=== PATIENT | male | born 1995 | race Caucasian/White ===

== ENCOUNTER 2018-06-27 13:15 | Emergency (ER) | payer OTHER ==
[~2018-06-27] VITALS: Ht 182.9 cm; Wt 81.6 kg
[2018-06-27 13:30] VITALS: BP 131/71
[2018-06-27] MEDS ORDERED: Lidocaine 1% MPF 10mg/ml 5ml IM ONE (13:45)
--- NOTE | 2018-06-27 14:09 | Emergency Room Report ---
History of Present Illness General Chief Complaint: Skin Rash/Abscess Source: Patient Present Illness HPI 23-year-old male patient presents ER complaining of swelling on his left hand small finger for the past month. Reports that a month ago he went through a glass window with his hand, states that he receives laceration repair and antibiotics at that time. Reports she was not consistent with taking the antibiotics, does not know name of abx. Reports has been asked dancing swelling symptoms of his finger since that time. Denies drainage or loss of range of motion. Reports he is right-hand dominant. Reports last took Tylenol last night. Denies other acute symptoms. Reports up to date on tetanus. Allergies: Coded Allergies: No Known Allergies (Unverified , 06/27/18) Patient History Past Medical History: see triage record Reviewed Nursing Documentation: PMH: Agreed; PSxH: Agreed Nursing Documentation-PMH Hx Asthma: Yes Review of Systems All Other Systems: negative except mentioned in HPI Physical Exam Vital Signs Date Time Temp Pulse Resp B/P (MAP) Pulse Ox O2 Delivery O2 Flow Rate FiO2 06/27/18 13:30 97.8 105 20 131/71 98 Room Air 97.9 Sp02 EP Interpretation: reviewed, normal General Appearance: well appearing, no apparent distress, alert, GCS 15, non- toxic Head: normocephalic, atraumatic Eyes: bilateral eye normal inspection, bilateral eye PERRL ENT: hearing grossly normal, normal pharynx, no angioedema, normal voice, uvula midline, moist mucus membranes Neck: full range of motion Respiratory: lungs clear, normal breath sounds, no rhonchi, no respiratory distress, no accessory muscle use, no wheezing, speaking full sentences Cardiovascular #1: regular rate, rhythm, no edema Cardiovascular #2: 2+ radial (R), 2+ radial (L) Musculoskeletal: back normal, digits/nails normal, gait/station normal, normal range of motion, non-tender, other - no fusiform swelling, digit not held inf lexion, no pain with flexion or extension, no TTP, NVI Neurologic: alert, oriented x3, responsive, motor strength/tone normal, sensory intact Psychiatric: mood/affect normal Skin: other - left hand small finger at PIP joint, erythematous flucutuant mass , no warmth to palpation, scabbing present, no warmth to palpation Procedures Incision and Drainage Incision and Drainage : Consent: Verbal Site: left small finger Blade Size: 11 I & D Procedure: betadine prep, sterile drapes applied, sterile dressing applied Wound Location: other - left hand small finger Wound's Depth, Shape: superficial Wound Length (cm): 1 Wound Explored: contaminated Irrigated w/ Saline (ccs): 10 Anesthesia: 1% Lidocaine Volume Anesthetic (ccs): 2 Splint Applied?: Yes Sling Applied?: No Patient Tolerated: Well Complications: None Medical Decision Making PA Attestation Dr. Coe is my supervising Physician whom patient management has been discussed with. Diagnostic Impression: Primary Impression: Finger mass, left ER Course Pt. presents to the ED c/o left finger swelling. Ddx considered but are not limited to fracture, sprain, strain, contusion, dislocation, cellulitis, abscess, cyst, edema, scar tissue. No erythema, no warmth to touch, no fever, nontoxic appearing, low suspicion for septic joint. no fusiform swelling, full range of motion, no tenderness to palpation over flexor tendon, finger is not held in flexion or extension, low suspicion for flexor tenosynovitis. Vital signs: are WNL, pt. is afebrile Ordered X-ray and pain medication. ER COURSE Provided with pain medication. An X-ray of the left hand shows soft tissue swelling at the PIP joint of the left hand, no radiopaque foreign body, no fracture per the preliminary reading I and D performed in the ER, local block using lid. Small less than 1 cm incision made ulnar side of hand at mass, small amount of blood and pus expressed, mass still visible, possible scar tissue formation. Provided with contact information for hand specialist. Follow up with hand specialist and schedule appointment. Keep wound clean and dry. Wound dressed. Bacitracin applied. Tylenol for pain symptoms. Patient instructed on RICE method: rest, ice, compression, elevation. Patient instructed on rest, ice and heat. Patient instructed to be WBAT Followup with primary care provider. Discuss referral to ortho/pain management/ PT as needed. Discuss further imaging with MRI/CT as needed. DISCHARGE: -Rx provided for Bactrim for pain symptoms. At this time pt. is stable for d/c to home. Patient is resting comfortably, in no acute distress, nontoxic appearing, talking without difficulty. Will provide printed patient care instructions, and any necessary prescriptions. Patient instructed to follow with primary care provider in 3 - 5 days and to request further follow-up as needed. Care plan and follow up instructions have been discussed with the patient prior to discharge. Take medications as directed. Patient questions asked and answered. Patient reports understanding and agreement to treatment plan. ER precautions given, patient instructed to return to ER immediately for any new or worsening of symptoms. - Please note that this Emergency Department Report was dictated using [employer] operator technology software, occasionally this can lead to erroneous entry secondary to interpretation by the dictation equipment. Other X-Ray Diagnostic Results Other X-Ray Diagnostic Results : X-Ray ordered: left hand # of Views/Limited Vs Complete: 3 View PA Xray: Interpretation reviewed, by supervising MD, and agrees with findings. Interpretation: no soft tissue swelling, no fractures, other - soft tissue swelling Impression: Other - soft tissue swelling PA Scribe Text Sylvester Dhillon PA-C Last Vital Signs Date Time Temp Pulse Resp B/P (MAP) Pulse Ox O2 Delivery O2 Flow Rate FiO2 06/27/18 13:49 97.8 06/27/18 13:30 105 20 131/71 98 Room Air Disposition: HOME, SELF-CARE Condition: Stable Scripts Trimethoprim/Sulfamethoxazole 160/800* (BACTRIM DS TABLET*) 1 Each Tablet 1 TAB ORAL TWICE A DAY for 7 Days, #14 TAB Prov: Michael Dhillon 06/27/18 Referrals: NOT CHOSEN IPA/,REFERRING (PCP) Patient Instructions: Finger Sprain, [id number] Additional Instructions: Patient instructed to follow up with primary care provider. Followup with hand specialist. Patient instructed on RICE method: rest, ice, compression, elevation. Patient instructed to WBAT. Take medications as directed. Take complete course of antibiotics. Patient questions asked and answered. ER precautions given, patient instructed to return to ER immediately for any new or worsening of symptoms. Michael Dhillon Jun 27, 2018 14:09
--- NOTE | 2018-06-27 14:15 | Diagnostic Imaging Report ---
Indication: Pain and swelling of the left fifth finger Technique: 3 views left hand Comparison: none Findings: Soft tissue swelling seen surrounding the fifth proximal interphalangeal joint. No acute fractures. There is equivocal slight subluxation of the fifth proximal interphalangeal joint. The remainder the bony alignment is normal. The joint spaces are preserved. A small cyst is seen in the scaphoid Impression: Soft tissue swelling about the fifth proximal interphalangeal joint No acute bony trauma Equivocal slight subluxation of the fifth proximal interphalangeal joint, could indicate ligamentous injury. Correlate with clinical findings
[2018-06-27] MEDS ORDERED: BACTRIM DS TAB1 EAC1 ORAL (14:35)
[2018-06-27] MEDS ORDERED: Bacitracin Oint UD TOPIC ONE ×2 (14:43→14:45)
[2018-06-27 14:50] VITALS: BP 122/70
== END 2018-06-27 14:53 | disposition home or self-care (01) ==
LOC: EMR 13:40
DX: R22.32 Localized swelling, mass and lump, left upper limb (principal); J45.909 Unspecified asthma, uncomplicated
CPT/HCPCS: 10060; 99283